=== PATIENT | male | born 1975 | race Two or more races ===

== ENCOUNTER 2019-02-18 08:11 | Day surgery (SDC) | payer OTHER ==
[~2019-02-18] VITALS: Ht 167.6 cm; Wt 72.6 kg
[2019-02-18 09:04] VITALS: BP 128/86
[2019-02-18 14:12] VITALS: BP 103/71
== END 2019-02-18 13:15 | disposition home or self-care (01) ==
LOC: DS 08:11 → GI 10:00 → OR 11:00 → GI 11:00 → DS 13:15
DX: K62.5 Hemorrhage of anus and rectum (principal); K64.8 Other hemorrhoids; Z79.899 Other long term (current) drug therapy; Z98.890 Other specified postprocedural states; Z86.19 Personal history of other infectious and parasitic diseases
CPT/HCPCS: 45378; 46221; J1200; J1610; J2250; J2310; J3010; J3490

== ENCOUNTER 2019-02-25 14:47 | Emergency (ER) | payer OTHER ==
[~2019-02-25] VITALS: Ht 167.6 cm; Wt 72.1 kg
[2019-02-25 15:15] VITALS: Ht 167.6 cm; Wt 72.1 kg
[2019-02-25 18:25] VITALS: BP 127/82
== END 2019-02-25 18:25 | disposition home or self-care (01) ==
LOC: ED 14:47
DX: K62.89 Other specified diseases of anus and rectum (principal); Z98.890 Other specified postprocedural states; I10 Essential (primary) hypertension